=== PATIENT | male | born 1975 | race Caucasian/White ===

== ENCOUNTER 2021-07-16 04:56 | Emergency (ER) | payer MEDICAID ==
[~2021-07-16] VITALS: Ht 160 cm; Wt 61.3 kg
[~2021-07-16 04:56] MED LIST: GABA300C PO; NO HOME MEDS
[2021-07-16] MEDS ORDERED: ketorolac trometh. 30mg/ml inj. IM ONE (06:25)
[2021-07-16] MEDS ORDERED: IBUP-1986 PO (06:37)
== END 2021-07-16 06:55 | disposition home or self-care (01) ==
LOC: ER 04:57
DX: M25.562 Pain in left knee (principal); R22.42 Localized swelling, mass and lump, left lower limb; G89.29 Other chronic pain; F15.90 Other stimulant use, unspecified, uncomplicated; Z72.89 Other problems related to lifestyle; Z56.0 Unemployment, unspecified; Z79.899 Other long term (current) drug therapy
CPT/HCPCS: 29505; 73564; 99283; J1885